=== PATIENT | female | born 1975 | race Caucasian/White ===

== ENCOUNTER 2019-04-21 11:25 | Emergency (ER) | payer OTHER ==
[~2019-04-21] VITALS: Ht 162.6 cm; Wt 117.9 kg
[2019-04-21] MEDS ORDERED: LOSARTAN-HCTZ1 EAC2 (11:38)
== END 2019-04-21 18:05 | disposition home or self-care (01) ==
LOC: ER 11:25 → CPU-OBS 13:51 → ER 18:05
DX: R07.89 Other chest pain (principal)
CPT/HCPCS: G0378; G0379; 93005